=== PATIENT | male | born 1940 | race Caucasian/White ===

== ENCOUNTER → 2017-10-13 | Outpatient (CLI) | payer OTHER | LOC: CIMAGING 07:53 | PROVIDERS: ATTEND Family Medicine | DX: I26.99 Other pulmonary embolism without acute cor pulmonale (principal) | CPT/HCPCS: 93970-PO ==

== ENCOUNTER → 2018-09-22 | Outpatient (CLI) | payer OTHER | END | disposition home or self-care (01) | LOC: FIMAGING 11:35 | PROVIDERS: ATTEND Specialist | DX: N20.0 Calculus of kidney (principal) ==